=== PATIENT | male | born 1955 | race Caucasian/White ===

== ENCOUNTER 2017-03-08 08:00 | Outpatient (RCR) | payer BC | END 2017-03-19 | LOC: OT 08:00 | PROVIDERS: ATTEND Surgery Surgery of the Hand | DX: M72.0 Palmar fascial fibromatosis [Dupuytren] (principal); M24.542 Contracture, left hand | CPT/HCPCS: 97110 ×2; 97165; 97760; L3913 ==

== ENCOUNTER 2017-03-31 07:27 | Outpatient (RCR) | payer BC | END 2017-04-19 | LOC: OT 07:27 | PROVIDERS: ATTEND Surgery Surgery of the Hand | DX: M72.0 Palmar fascial fibromatosis [Dupuytren] (principal); M79.642 Pain in left hand; M25.642 Stiffness of left hand, not elsewhere classified | CPT/HCPCS: 97010 ×2; 97110 ×2; L3929; L3933 ==